=== PATIENT | female | born 1980 | race Hispanic/Latino ===

== ENCOUNTER 2020-07-17 01:11 | Emergency (ER) | payer OTHER ==
[2020-07-17 02:00] LABS: BASOPHILS % (AUTO) 0.8 % (0.0-5.0); EOSINOPHILS % (AUTO) 0.8 % (0.0-8.0); HEMATOCRIT 35.6 % (36-48); LYMPHOCYTES % (AUTO) 32.6 % (21.0-51.0); MEAN CORPUSCULAR HGB CONC 33.7 g/dL (32.0-36.0); MEAN CORPUSCULAR VOLUME 103.8 fL (79-99); MONOCYTES % (AUTO) 13.9 % (3.0-13.0); NEUTROPHILS % (AUTO) 51.4 % (40.0-77.0); PLATELET COUNT (AUTO) 265 K/uL (130-400); RED BLOOD CELL COUNT(AUTO) 3.43 MIL/uL (4.00-5.50); RED CELL DISTRIBUTION WIDTH 14.1 % (11.0-15.5); WHITE BLOOD COUNT (AUTO) 3.9 K/uL (4.8-10.8)
[2020-07-17 02:07] LABS: CARBON DIOXIDE 27 mmol/L (21-32); CHLORIDE 104 mmol/L (101-111); CREATININE 0.6 mg/dL (0.5-1.5); GLOMERULAR FILTR. RATE CALC 118 mL/min (>60); GLUCOSE,RANDOM 98 mg/dL (70-105); POTASSIUM 3.2 mmol/L (3.5-5.1); SODIUM SERUM 143 mmol/L (136-145); UREA NITROGEN, BLOOD 7 mg/dL (7-18)
[2020-07-17 02:12] LABS: ALANINE AMINOTRANSFERASE 59 U/L (12-78); ALBUMIN 3.4 g/dL (3.5-5.0); ASPARTATE AMINOTRANSFERASE 51 U/L (10-37); BILIRUBIN,TOTAL 0.1 mg/dL (0.2-1.0); CREATINE KINASE, TOTAL 116 U/L (21-232); TOTAL PROTEIN, SERUM 7.6 g/dL (6.0-8.3)
[2020-07-17 02:14] LABS: ALCOHOL, BLOOD 311 mg/dL (0-10)
[2020-07-17 02:15] LABS: BILIRUBIN,DIRECT < 0.1 mg/dL (0.0-0.3)
[2020-07-17 02:26] LABS: AMPHET/METH SCREEN,URINE NEGATIVE (NEGATIVE); BARBITURATE SCREEN, URINE NEGATIVE (NEGATIVE); BENZODIAZEPINES SCREEN,URINE POSITIVE (NEGATIVE); CANNABINOID SCREEN,URINE NEGATIVE (NEGATIVE); COCAINE SCREEN,URINE NEGATIVE (NEGATIVE); OPIATE SCREEN,URINE NEGATIVE (NEGATIVE); PHENCYCLIDINE SCREEN,URINE NEGATIVE (NEGATIVE)
== END 2020-07-17 04:12 | disposition home or self-care (01) ==
LOC: EDH 01:11
DX: R20.2 Paresthesia of skin (principal); F10.10 Alcohol abuse, uncomplicated; F41.9 Anxiety disorder, unspecified; Z90.49 Acquired absence of other specified parts of digestive tract; Z98.890 Other specified postprocedural states
CPT/HCPCS: 36415; 70450; 80048; 80076; 80305; 82550; 84484; 85025; 93005

== ENCOUNTER 2024-10-03 05:56 | Emergency (ER) | payer OTHER ==
[~2024-10-03] VITALS: Ht 165.1 cm; Wt 64.0 kg
[~2024-10-03 05:56] MED LIST changes: -ACET-2079 PO; -GABA-529 PO
--- NOTE | 2024-10-03 06:27 | NUR ---
PATIENT STATES ONLY TAKES VITAMINS DAILY.
--- NOTE | 2024-10-03 06:28 | NUR ---
STATES HERE FOR CHRONIC BILATERAL LOWER BACK PAIN DOWN TO LOWER LEGS, PAIN INCLUDES BUTTOCKS, AND HIPS. STATES SEEEING DR PRINGLE FOR THESE PAINS, PAIN DISRUPTS SLEEP.
[2024-10-03] MEDS ORDERED: ACET-2079 PO (07:16)
[2024-10-03] MEDS ORDERED: GABA-529 PO (07:17)
--- NOTE | 2024-10-03 07:17 | ERN ---
General Chief Complaint: Hip Pain/Injury Stated Complaint: C/O PAIN TO BODY AND HIPS, LEFT KNEE, BACK Time Seen by MD: 06:50 History of Present Illness Initial Comments 44-year-old female who presents for chronic hip, coccyx, and lower pain. Patient reports that she had an injury a few years ago. She reports that she has been extensively worked up. She reports that lately the pain has been getting worse in her bilateral hips and lower back. She has no neurovascular deficits. She is ambulatory. No paresthesias. She uses Tylenol at home which she reports is not working anymore. Any systemic signs or symptoms. She has a history of high cholesterol. Allergies: Uncoded Allergies: NKDA (Adverse Reaction, Unknown, 04/07/24) Home Meds Active Scripts Gabapentin (Gabapentin) 100 Mg Capsule, 1 CAP PO TID for pain for 10 Days, #30 CAP 0 Refills Prov:ARIELLA ADAIR DO 10/03/24 Acetaminophen with Codeine (Acetaminophen-Cod #3 Tablet) 300 Mg-30 Mg Tablet, 1 TAB PO Q6HPRN PRN for pain for 7 Days, #20 TAB 0 Refills Prov:ARIELLA ADAIR DO 10/03/24 Pantoprazole Sodium (Protonix) 40 Mg Ectab, 40 MG PO DAILY for 30 Days, #30 TAB.EC Prov:WILIAM CHOUDHURY NP 04/09/24 Reported Medications Atorvastatin Calcium (Atorvastatin Calcium) 20 Mg Tablet, 20 MG PO DAILY, TAB 04/08/24 Alprazolam (Alprazolam) 0.5 Mg Tablet, 0.5 MG PO BID PRN for ANXIETY/AGITATION, TAB 04/08/24 Past Medical History Past Medical History: Anxiety, Other Medical History Other: HX OF GASTRITIS, OSTEO-ARTHRITIS Past Surgical History: Cholecystectomy, Female( History) History: Not Applicable ROS Dictation CONSTITUTIONAL: No chills, no fever, no weakness, no diaphoresis, no malaise. HEAD/FACE: No signs of trauma. EENT: No eye pain, no blurred vision, no tearing, no double vision, no ear pain, no ear discharge, no nose pain, no nasal congestion, no throat pain, no throat swelling, no mouth pain. RESPIRATORY: No cough, no orthopnea, no SOB, no stridor, no wheezing. CARDIOVASCULAR: No chest pain, no edema, no palpitations, no syncope. GASTROINTESTINAL/ABDOMINAL: No abdominal pain, no constipation, no diarrhea, no nausea, no vomiting. GENITOURINARY: No abnormal discharge, no dysuria, no frequent urination, no hematuria. No complaints of pain in the genitals. MUSCULOSKELETAL: Bilateral hip pain, lower back pain INTEGUMENTARY: No change in color, no change in hair/nails, no dryness, no lesion, no lumps, no rash. NEUROLOGICAL/PSYCH: No anxiety, not depressed, no emotional problem, no headache, no numbness, no pre-existing deficit, no history of seizures, no tremors, no weakness. HEMATOLOGIC/LYMPHATIC: Not anemic, no history of blood clots, no apparent bleeding, no bruising, glands not swollen. All Systems Negative, Except as Noted. Physical Exam Physical Exam Dictation VITAL SIGNS: Reviewed. GENERAL APPEARANCE: Alert, oriented x3, no acute distress HEAD AND FACE: Non-traumatic. EYES: PERRL, pink conjunctivas, eyelid no trauma, anterior chamber clear. EARS: Pinnas intact and no signs of trauma or erythema. Ear canals clear and no discharge. TMs no erythema. NOSE: No discharge, no bleeding. OROPHARYNX: Mouth normal, teeth no caries, tongue pink. Pharynx clear, no erythema. Tonsils no exudates, no abscesses noted. Mucous membrane moist. NECK: Supple, non-tender, no thyromegaly, no masses, no JVD, no bruits. BREAST: Deferred. CHEST: No tenderness, no crepitus, no paradoxical movement, no retractions. LUNGS: Clear, well-ventilated, symmetric, no rales, no wheezing, no rhonchi, no stridor, good breath sounds bilaterally. HEART: Regular rate, regular rhythm, no murmur, no gallops. VASCULAR: No peripheral edema. ABDOMEN: Soft, positive bowel sounds, nondistended, no guarding, nontender, no rebound, no masses no hepatomegaly, no splenomegaly, no Grace's sign, no hernias. RECTAL: Deferred. GENITAL: Deferred. NEUROLOGICAL: Normal speech, gross motor function intact, gross sensory function intact. MUSCULOSKELETAL: Neck nontender, full range of motion, back nontender, full range of motion. EXTREMITIES: Nontender, full range of motion. SKIN: Color pink, dry, no turgor, no rash, no lacerations, no abrasions, no contusions. LYMPHATICS: Deferred. MDM CC: Bilateral hip pain, chronic, lower back pain Historian: Patient Comorbidities: Injury a few years ago, hypertension Vital signs are stable Differential diagnosis: MSK pain. I did consider alternative disorders such as rheumatoid arthritis. There is no signs of skeletal injury or disease. He is ambulatory. No signs of cauda equina syndrome or compression syndromes. Ordered a bilateral pelvic x-ray. No acute abnormalities independently interpreted by me. Patient given a p.o. [place]. We will DC with pain control, she was a history of gastritis we will avoid NSAIDs. We will give a short course of Tylenol with codeine and recommend PCP follow up. ED Course Orders Procedure Category Date Status Time Hip Bilat 2vw RAD 10/03/24 Taken 07:11 Hydrocodone/Apap PHA 10/03/24 Complete 5/325 ([place] 5/325mg) 07:30 Current Medications Medications (Trade) Dose Ordered Sig/Sravani Route PRN Reason Start Time Stop Time Status Last Admin Dose Admin Acetaminophen/ Hydrocodone Bitart (NORco 5/325MG) 1 tab ONCE ONCE PO 10/03/24 07:30 10/03/24 07:31 DC 10/03/24 07:25 Vital Signs Date Time Temp Pulse Resp B/P (MAP) Pulse Ox O2 Delivery O2 Flow Rate FiO2 10/03/24 05:58 97.0 103 18 122/82 98 Room Air DX & DISP Disposition: Discharge Departure Impression: Primary Impression: Chronic hip pain Condition: Stable Scripts Gabapentin (Gabapentin) 100 Mg Capsule 1 CAP PO TID for pain for 10 Days, #30 CAP 0 Refills Prov: ARIELLA ADAIR DO 10/03/24 Acetaminophen with Codeine (Acetaminophen-Cod #3 Tablet) 300 Mg-30 Mg Tablet 1 TAB PO Q6HPRN PRN for pain for 7 Days, #20 TAB 0 Refills Prov: ARIELLA ADAIR DO 10/03/24 Additional Instructions: Your symptoms are consistent with chronic pain. The x-ray of your hips does not show any bony abnormalities. I have prescribed Tylenol with codeine and gabapentin to use as needed for pain. I recommend that you follow up with the primary physician. You may need further treatment such as physical therapy. Please return to the emergency department as needed. Referrals: NIKI BEAL MD (PCP) ARIELLA ADAIR DO Oct 03, 2024 07:17
[2024-10-03 07:25] VITALS: BP 120/80; PULSE 95; RESP 18; TEMP 98; O2SAT 98
[2024-10-03] MEDS: HYDROcodone/APAP 5/325 1 TAB TABLET PO ONE (07:25)
--- NOTE | 2024-10-03 08:50 | HMCIMG ---
HIP BILAT 2VW REASON: pain COMPARISON: None TECHNIQUE: 2 views were obtained of the pelvis and both hips. FINDINGS: Bones of the pelvis appear intact. There are no fractures. There are no focal osseous lesions. Proximal femurs appear normal including both femoral heads. Hip joint spaces are preserved. Soft tissues appear unremarkable. IMPRESSION: 1. Normal views of the pelvis and both hips.
== END 2024-10-03 08:08 | disposition home or self-care (01) ==
LOC: EDH 05:56
DX: G89.29 Other chronic pain (principal); M25.551 Pain in right hip; M25.552 Pain in left hip; E78.00 Pure hypercholesterolemia, unspecified; F41.9 Anxiety disorder, unspecified; I10 Essential (primary) hypertension; M19.90 Unspecified osteoarthritis, unspecified site; Z79.899 Other long term (current) drug therapy; Z90.49 Acquired absence of other specified parts of digestive tract
CPT/HCPCS: 73521; 99283

== ENCOUNTER → 2024-10-03 | Emergency (ER) | payer BC, OTHER ==
[~2024-10-03] VITALS: Ht 165.1 cm; Wt 64.0 kg
[~2024-10-03] MED LIST: ACET-2079 PO; ALPR0.5T8 PO; ATOR20TA65 PO; GABA-529 PO; PANT40TA55 PO
[2024-10-03 02:12] VITALS: BP 119/93; PULSE 111; RESP 20; TEMP 96.6
--- NOTE | 2024-10-03 02:45 | ERN ---
ED Note History of Present Illness Stated Complaint: C/O PAIN TO BODY X 1 YR Chief Complaint: Hip Pain/Injury Time Seen by MD: 02:19 Dictation: Patient left without being seen went to [facility] and returned after 2 hours and refused to sign in Allergies: Uncoded Allergies: NKDA (Adverse Reaction, Unknown, 04/07/24) Home Meds Active Scripts Pantoprazole Sodium (Protonix) 40 Mg Ectab, 40 MG PO DAILY for 30 Days, #30 TAB.EC Prov:WILIAM CHOUDHURY SURVEILLANCE [employer] TECHNICIAN 04/09/24 Reported Medications Atorvastatin Calcium (Atorvastatin Calcium) 20 Mg Tablet, 20 MG PO DAILY, TAB 04/08/24 Alprazolam (Alprazolam) 0.5 Mg Tablet, 0.5 MG PO BID PRN for ANXIETY/AGITATION, TAB 04/08/24 Past Medical History Past Medical History: Anxiety, Other Additional Past Medical Hx: HX OF GASTRITIS, OSTEO-ARTHRITIS Surgical History: Cholecystectomy, History: Not Applicable RN Note Reviewed/Agreed w/PFSH: Yes Review of System Dictation Left without being seen Initial Vital Sign VS Vital Signs Date Time Temp Pulse Resp B/P (MAP) Pulse Ox O2 Delivery O2 Flow Rate FiO2 10/03/24 02:12 96.6 111 20 119/93 98 Room Air Physical Exam Dictation Left without being seen Results (Laboratory/Radiology) Labs Reviewed?: Yes ED Course ED Course Vital Signs Date Time Temp Pulse Resp B/P (MAP) Pulse Ox O2 Delivery O2 Flow Rate FiO2 10/03/24 02:12 96.6 111 20 119/93 98 Room Air We will perform diagnostic labs, advanced imaging and administer medications according to the patient's complaint. Once the results are available, will review and personally interpreted the labs to rule out any acute life- threatening emergency the trach require immediate intervention and treatment. I will then re-evaluate the patient after treatment and diagnostic exams have return to determine whether the patient requires any further testing, can safely be discharged home or need further admission to hospital for additional treatment and evaluation. I requested pelvic x-rays but patient refused and left without being seen Medical Decision Making MDM Left without being seen Problem List Problem List: (1) Chronic hip pain DX & DISP Disposition: Other(Comment) (Patient left without being seen) Departure Impression: Primary Impression: Chronic hip pain Condition: Stable Additional Instructions: Patient left without being seen Referrals: NIKI BEAL MD (PCP) BOZENA GARCIA MD Oct 03, 2024 02:45
--- NOTE | 2024-10-03 03:37 | NUR ---
CALLED FOR PT IN LOBBY; NO RESPONSE; PT NOT FOUND IN LOBBY
== END | disposition left against medical advice (07) ==
LOC: EDH 02:09
DX: G89.29 Other chronic pain (principal); M25.559 Pain in unspecified hip; F41.9 Anxiety disorder, unspecified; M19.90 Unspecified osteoarthritis, unspecified site; Z79.899 Other long term (current) drug therapy; Z90.49 Acquired absence of other specified parts of digestive tract; Z53.21 Procedure and treatment not carried out due to patient leaving prior to being seen by health care provider

== ENCOUNTER 2024-12-23 03:55 | Emergency (ER) | payer BC, OTHER ==
[~2024-12-23] VITALS: Ht 167.6 cm; Wt 59.0 kg
[~2024-12-23 03:55] MED LIST changes: +ACET-2079 PO; +GABA-529 PO
--- NOTE | 2024-12-23 04:18 | NUR ---
REPORT TO RENATA CHARLES
--- NOTE | 2024-12-23 04:27 | ERN ---
General Chief Complaint: Multiple Complaints Stated Complaint: EPIGASTRIC PAIN Time Seen by MD: 04:17 History of Present Illness Initial Comments Patient is a 44-year-old female with complaints of epigastric pain but also nausea and vomiting and a sore throat. Her major complaint seems to be chest "bubbly feeling" starting in her right upper chest and migrating around to her right side. She states that she has GERD and h her breathing is laborious. Timing/Duration: 24 hours Allergies: Uncoded Allergies: NKDA (Adverse Reaction, Unknown, 04/07/24) Home Meds Active Scripts Pantoprazole Sodium (Protonix) 20 Mg Tablet.dr, 1 TAB PO DAILY for 30 Days, #30 TAB 0 Refills Prov:LUPE ALVARADO MD 12/23/24 Cyclobenzaprine HCl (Flexeril) 10 Mg Tab, 10 MG PO TID for muscle sstiffness, #14 TAB 0 Refills Prov:LUPE ALVARADO MD 12/23/24 Gabapentin (Gabapentin) 100 Mg Capsule, 1 CAP PO TID for pain for 10 Days, #30 CAP 0 Refills Prov:ARIELLA ADAIR DO 10/03/24 Acetaminophen with Codeine (Acetaminophen-Cod #3 Tablet) 300 Mg-30 Mg Tablet, 1 TAB PO Q6HPRN PRN for pain for 7 Days, #20 TAB 0 Refills Prov:ARIELLA ADAIR DO 10/03/24 Pantoprazole Sodium (Protonix) 40 Mg Ectab, 40 MG PO DAILY for 30 Days, #30 TAB.EC Prov:WILIAM CHOUDHURY NP 04/09/24 Reported Medications Atorvastatin Calcium (Atorvastatin Calcium) 20 Mg Tablet, 20 MG PO DAILY, TAB 04/08/24 Alprazolam (Alprazolam) 0.5 Mg Tablet, 0.5 MG PO BID PRN for ANXIETY/AGITATION, TAB 04/08/24 Past Medical History Past Medical History: Anxiety, Depression, Other Medical History Other: HX OF GASTRITIS, OSTEO-ARTHRITIS Past Surgical History: Cholecystectomy, Female( History) History: Not Applicable ROS Dictation Review of systems is otherwise negative no fevers or chills no change in mental status no visual changes no sore throat no abdominal pain can move all of her extremities. Physical Exam General Appearance: (+) mild distress Orientation: (+) alert Head/Face Trauma: No Eye: bilateral eye normal inspection, bilateral eye PERRL, bilateral eye EOMI Ear, Nose, Throat: (+) hearing grossly normal, (+) normal ENT inspection Neck: (+) normal inspection, (+) supple, (+) full range of motion Respiratory: (+) lungs clear, (+) well ventilated Respiratory Comment She has surprising chest wall tenderness on the right upper chest. There are no lumps under the skin that I can palpate there are no areas of redness but there definitely has point tenderness. Heart: (+) regular, (+) no gallop Vascular: (+) no edema, (+) normal peripheral pulse Gastrointestinal: (+) soft, (+) non-tender, (+) no organomegaly, (+) bowel sound present Results Laboratory and Microbiology Lab and Micro Result Laboratory Tests Test 12/23/24 04:50 12/23/24 05:00 Urine Color YELLOW (YELLOW) Urine Appearance CLOUDY (CLEAR) H Urine pH 7.5 (5.0-8.0) Urine Specific [place] 1.024 (1.001-1.031) Urine Protein 30 mg/dL (NEGATIVE) H Urine Glucose (UA) NEGATIVE mg/dL (NEGATIVE) Urine Ketones NEGATIVE mg/dL (NEGATIVE) Urine Occult Blood NEGATIVE (NEGATIVE) Urine Nitrate NEGATIVE (NEGATIVE) Urine Bilirubin NEGATIVE mg/dL (NEGATIVE) Urine Urobilinogen 4.0 mg/dL (0.2-1.0) H Urine Leukocyte Esterase NEGATIVE Lino/uL Urine RBC 2-5 /HPF (0-1) H Urine WBC 2-5 /HPF (0-1) H Urine Squamous Epithelial Cells FEW /HPF (0-2) Urine Other Crystals (Auto) 3 /HPF (None Seen) Urine Bacteria RARE /HPF (None Seen) Urine HCG, Qualitative NEGATIVE (NEGATIVE) White Blood Count 4.0 K/uL (4.8-10.8) L Red Blood Count 3.72 MIL/uL (4.00-5.50) L Hemoglobin 13.8 g/dL (12.0-16.0) Hematocrit 40.2 % (36-48) Mean Corpuscular Volume 108.1 fL (79-99) H Mean Corpuscular Hemoglobin 37.1 pg (27.0-33.0) H Mean Corpuscular Hemoglobin Concent 34.3 g/dL (32.0-36.0) Red Cell Distribution Width 13.5 % (11.0-15.5) Platelet Count 175 K/uL (130-400) Mean Platelet Volume 10.9 fL (7.5-10.5) H Immature Granulocyte % (Auto) 0.8 % (0-1) Neutrophils (%) (Auto) 56.0 % (40.0-77.0) Lymphocytes (%) (Auto) 28.1 % (21.0-51.0) Monocytes (%) (Auto) 13.8 % (3.0-13.0) H Eosinophils (%) (Auto) 0.5 % (0.0-8.0) Basophils (%) (Auto) 0.8 % (0.0-5.0) Neutrophils # (Auto) 2.2 K/uL (1.8-7.7) Lymphocytes # (Auto) 1.1 K/uL (1.0-4.8) Monocytes # (Auto) 0.6 K/uL (0.1-1.0) Eosinophils # (Auto) 0.02 K/uL (0.00-0.70) Basophils # (Auto) 0.03 K/uL (0.00-0.20) Absolute Immature Granulocyte (auto 0.03 K/uL (0-1) Nucleated Red Blood Cells 0.0 % (0.0-0.19) Red Blood Cell Morphology See comments Sodium Level 144 mmol/L (136-145) Potassium Level 3.0 mmol/L (3.5-5.1) *L Chloride Level 103 mmol/L (101-111) Carbon Dioxide Level 31 mmol/L (21-32) Blood Urea Nitrogen 4 mg/dL (7-18) L Creatinine 0.4 mg/dL (0.5-1.0) L Glomerular Filtration Rate Calc 125 mL/min (>90) Random Glucose 90 mg/dL (70-105) Total Calcium 8.9 mg/dL (8.5-10.1) Troponin I High Sensitivity < 4 ng/L (4-50) L B-Type Natriuretic Peptide < 5 pg/mL (0-100) Labs Reviewed?: Yes MDM I am sort of at a loss for a simple explanation for this constellation of symptoms that the patient has. I will start my workup for the usual upper respiratory tract infection or gastroenteritis. Labs for cardiac workup have already been ordered. I added a GI cocktail. In addition I will include a chest x-ray. Incidentally she pointed out some swelling to her left elbow from a mosquito bite I will give her some Benadryl. Chemistry panel comes back with a potassium of 3.0. We are correcting it. UA was negative negative WBCs 4.0, hematocrit normal. Patient's chest x-ray is negative talking to the patient and her creative writer he mentioned yesterday he heard her fall hard and found her on the tile floor face down. I believe this explains the majority of the patient's acute symptoms. When I palpate her right upper chest wall even a little bit she reacts with pain. And just moving her shoulder elicits pain in her right upper chest. I think she severely injured her chest wall. I will get a CT scan of her chest just to rule out occult rib fractures that are not seen on the chest x-ray possibly also we will see some muscular swelling. In the meantime I will treat her pain with Tylenol and muscle relaxant. Interestingly when I talked to the patient about her potassium level she said that it is always low she does not know why. Her magnesium tends to run low as well. She knows to replenish them when she gets muscle cramps in her bilateral lower extremities. Patient handed off at shift change pending results on imaging, CT scan of the chest negative for any fractures and dislocations. Re-evaluated patient she reports she feels better and wants to go home repeat exam is stable no acute distress neuro exam normal vital signs stable prescriptions given. MDM: Differential diagnosis: Chest wall contusion, electrolyte imbalance Risk of complication and/or morbidity or mortality of patient management: None Medications-Per medication reconciliation Need for hospitalization: Patient does not meet criteria for hospitalization. Need for emergency major/minor surgery: No There are no social concerns with this patient. Prescription drug management Prescriptions will include symptomatic care I independently interpreted the test that were performed, results were reviewed by me and considered findings on radiology if ordered. ED Course Orders Procedure Category Date Status Time Vital Signs Per CPOE 12/23/24 Transmitted Routine 04:00 B-Type Natriuretic LAB 12/23/24 Complete Peptide 04:00 12 Lead Ekg Tracing- EKG 12/23/24 Logged Technical 04:00 Oxygen By Nc/Pulse Ox CPOE 12/23/24 Transmitted 04:00 Maintain Iv CPOE 12/23/24 Transmitted 04:00 Iv Insertion CPOE 12/23/24 Transmitted 04:00 Cardiac Monitoring CPOE 12/23/24 Transmitted 04:00 Pulse Oximetry With CPOE 12/23/24 Transmitted Vs And Prn 04:00 Cbc With Differential LAB 12/23/24 Complete 04:00 Activity: Br W/Brp CPOE 12/23/24 Transmitted With Assist 04:00 Troponin I High LAB 12/23/24 Complete Sensitivity 04:00 Urinalysis Profile LAB 12/23/24 Complete 04:00 Basic Metabolic Panel LAB 12/23/24 Complete 04:00 ,Urine Test LAB 12/23/24 Complete 04:52 Chest 1vw RAD 12/23/24 Resulted 05:03 Lidocaine Hcl 2% PHA 12/23/24 Complete Viscous (Lidocaine Hcl 05:30 Mag/Alum/Simeth 30ml PHA 12/23/24 Complete (Maalox Plus 30ml) 05:30 Dicyclomine Hcl PHA 12/23/24 Complete (Bentyl 10mg/5ml 05:30 Potassium Bicarb/Cit PHA 12/23/24 Complete Ac 25meq (K-Lyte Ta 06:00 Cyclobenzaprine Hcl PHA 12/23/24 Complete (Cyclobenzaprine Hcl 07:00 Acetaminophen 650mg PHA 12/23/24 Complete Elixir (Tylenol 650m 07:00 Ct Chest W/O Contrast CT 12/23/24 Resulted 06:56 Current Medications Medications (Trade) Dose Ordered Sig/Sravani Route PRN Reason Start Time Stop Time Status Last Admin Dose Admin Acetaminophen (TYLenol 650MG ELIXIR) 650 mg ONCE ONCE PEG 12/23/24 07:00 12/23/24 07:01 DC 12/23/24 06:52 Al Hydroxide/Mg Hydroxide (MAALox PLUS 30ML) 30 ml ONCE ONCE PO 12/23/24 05:30 12/23/24 05:31 DC 12/23/24 05:31 Cyclobenzaprine HCl (Cyclobenzaprine HCl) 10 mg ONCE ONCE PO 12/23/24 07:00 12/23/24 07:01 DC 12/23/24 06:52 Dicyclomine HCl (Bentyl 10mg/5ml Syrup) 10 mg ONCE ONCE PO 12/23/24 05:30 12/23/24 05:31 DC 12/23/24 05:31 Lidocaine HCl (Lidocaine HCl 2% Viscous) 10 ml ONCE ONCE PO 12/23/24 05:30 12/23/24 05:31 DC 12/23/24 05:31 Potassium Bicarbonate (K-Lyte Tablet Eff 25 Meq Tablet.eff) 50 meq ONCE ONCE PO 12/23/24 06:00 12/23/24 06:01 DC 12/23/24 05:42 Vital Signs Date Time Temp Pulse Resp B/P (MAP) Pulse Ox O2 Delivery O2 Flow Rate FiO2 12/23/24 07:55 98.1 87 16 98/73 97 Room Air* 0 21 12/23/24 05:06 98.1 87 16 112/68 98 Room Air* 0 21 12/23/24 03:56 97.9 95 20 108/79 97 Room Air DX & DISP Disposition: Discharge Departure Impression: Primary Impression: Chest wall contusion Additional Impression: Hypokalemia Condition: Stable Scripts Pantoprazole Sodium (Protonix) 20 Mg Tablet.dr 1 TAB PO DAILY for 30 Days, #30 TAB 0 Refills Prov: LUPE ALVARADO MD 12/23/24 Cyclobenzaprine HCl (Flexeril) 10 Mg Tab 10 MG PO TID for muscle sstiffness, #14 TAB 0 Refills Prov: LUPE ALVARADO MD 12/23/24 Referrals: NIKI BEAL MD (PCP) LYNETTE BROWNLEE MD Dec 23, 2024 04:27 LUPE ALVARADO MD Dec 23, 2024 08:37
[2024-12-23 05:09] LABS: BASOPHILS # (AUTO) 0.03 K/uL (0.00-0.20); BASOPHILS % (AUTO) 0.8 % (0.0-5.0); EOSINOPHILS # (AUTO) 0.02 K/uL (0.00-0.70); EOSINOPHILS % (AUTO) 0.5 % (0.0-8.0); HEMATOCRIT 40.2 % (36-48); IMMATURE GRANULOCYTE ABSOLUTE 0.03 K/uL (0-1); LYMPHOCYTES # (AUTO) 1.1 K/uL (1.0-4.8); LYMPHOCYTES % (AUTO) 28.1 % (21.0-51.0); MEAN CORPUSCULAR HEMOGLOBIN 37.1 pg (27.0-33.0); MEAN CORPUSCULAR HGB CONC 34.3 g/dL (32.0-36.0); MEAN CORPUSCULAR VOLUME 108.1 fL (79-99); MONOCYTES # (AUTO) 0.6 K/uL (0.1-1.0); MONOCYTES % (AUTO) 13.8 % (3.0-13.0); NEUTROPHILS # (AUTO) 2.2 K/uL (1.8-7.7); PLATELET COUNT (AUTO) 175 K/uL (130-400); RED BLOOD CELL COUNT(AUTO) 3.72 MIL/uL (4.00-5.50); RED CELL DISTRIBUTION WIDTH 13.5 % (11.0-15.5)
[2024-12-23 05:19] LABS: CREATININE 0.4 mg/dL (0.5-1.0)
[2024-12-23 05:21] LABS: APPEARANCE,URINE CLOUDY (CLEAR); BILIRUBIN,URINE NEGATIVE (NEGATIVE); COLOR,URINE YELLOW (YELLOW); GLUCOSE, URINE (UA) NEGATIVE (NEGATIVE); KETONES,URINE NEGATIVE (NEGATIVE); LEUKOCYTE ESTERASE ,URINE NEGATIVE Leu/uL (NEGATIVE); NITRATE,URINE NEGATIVE (NEGATIVE); OCCULT BLOOD,URINE NEGATIVE (NEGATIVE); PH,URINE 7.5 (5.0-8.0); PROTEIN,URINE 30 mg/dL (NEGATIVE)
[2024-12-23 05:29] LABS: ADD UA MICROSCOPIC YES
[2024-12-23 05:31] LABS: BACTERIA,URINE RARE /HPF (None Seen); MUCUS,URINE MANY LPF (None Seen); SQUAMOUS EPITHELIAL CELL,UR FEW /HPF (0-2); UNCLASSIFIED CRYSTAL 3 /HPF (None Seen)
[2024-12-23] MEDS: LIDOCAINE HCL 2% VISCOUS 15 ML UDCUP PO ONE (05:31)
[2024-12-23] MEDS: MAG/ALUM/SIMETH 30 ML UDCUP PO ONE (05:31)
[2024-12-23] MEDS: DICYCLOMINE HCL 10 MG/5 ML ML PO ONE (05:31)
[2024-12-23] MEDS: PoTASSium BIcarbonate/CIT AC 25 MEQ TABLET.EFF PO ONE (05:42)
[2024-12-23 05:52] LABS: B-TYPE NATRIURETIC PEPTIDE < 5 pg/mL (0-100)
[2024-12-23] MEDS: acetaMINOPHEN 650 MG/20.3 ML UDCUP PEG ONE (06:52)
[2024-12-23] MEDS: CYCLOBENZAPRINE HCL 10 MG TABLET PO ONE (06:52)
[2024-12-23 07:55] VITALS: BP 98/73; PULSE 87; RESP 16; TEMP 98.1; O2SAT 97
--- NOTE | 2024-12-23 08:11 | HMCIMG ---
CT NONCONTRAST CHEST Comparison Study: none History: chest wall pain Technique: Helical CT of the chest without IV contrast at 5 mm collimation. Coronal and sagittal reformations also done. CT Dose Index (CTDI): 2.38 mGy Dose Length Product (DLP): 94.8 total mGy-cm Findings: The airway is intact. The trachea and major bronchi are unremarkable. The chest exam shows no pulmonary nodules or masses. No significant pulmonary parenchymal abnormalities are noted. No pulmonary infiltrates or mass lesions are seen. No pleural effusions are identified. There is no pneumothorax. There is no evidence of pneumomediastinum. The nonenhanced exam of the ugo and mediastinum is unremarkable. No evidence of hilar enlargement is seen. The aorta shows no aneurysmal dilatation or significant atheromatous calcification. No significant brachiocephalic vascular abnormalities are seen. The heart is unremarkable. It is not enlarged. No significant coronary arterial calcifications are seen. There is no pericardial effusion. Deformity of the right second and fourth ribs which may represent old healed fractures. The soft tissues of the chest wall are unremarkable. The dorsal spine shows no significant abnormalities. IMPRESSION: No acute pathology. This study was performed using dose reduction techniques to include automated exposure control and/or adjustment of the mA and/or kV according to patient size.
--- NOTE | 2024-12-23 08:16 | HMCIMG ---
Exam Type: CHEST 1VW Clinical Information: sob chest wall pain Comparison: None Findings: The lungs are clear of infiltrates. The heart is normal in size. The bony and soft tissue structures of the chest are unremarkable. Impression: Clear lungs.
[2024-12-23] MEDS ORDERED: PANT20TA PO (08:36)
[2024-12-23] MEDS ORDERED: CYCL10TA16 PO (08:36)
--- NOTE | 2024-12-23 16:01 | EKG ---
[facility] Test Date: 2024-12-23 Test Time: 03:46:52 Pat Name: TOMAS ELAM Department: [facility] Room: Gender: F Administrative Assistant Front Desk: [id number] : 1980 Requested By: LYNETTE BROWNLEE Order Number: [id number] Reading MD: Joan Monahan Measurements Intervals [place] Rate: 88 P: 35 OK: 160 QRS: -14 QRSD: 58 T: 4 QT: 383 QTc: 464 Interpretive Statements Sinus rhythm Borderline ST elevation, lateral leads Compared to ECG 07/17/2020 01:32:25 ST (T wave) deviation now present Sinus tachycardia no longer present Electronically Signed On 12-24-2024 12:37:21 CDT by Joan Monahan Please click the below link to view image of tracing.
== END 2024-12-23 08:47 | disposition home or self-care (01) ==
LOC: EDH 03:55
DX: S20.219A Contusion of unspecified front wall of thorax, initial encounter (principal); E87.6 Hypokalemia; F32.A Depression, unspecified; F41.9 Anxiety disorder, unspecified; K21.9 Gastro-esophageal reflux disease without esophagitis; M19.90 Unspecified osteoarthritis, unspecified site; Z79.899 Other long term (current) drug therapy; Z90.49 Acquired absence of other specified parts of digestive tract; X58.XXXA Exposure to other specified factors, initial encounter; Y93.89 Activity, other specified; Y92.89 Other specified places as the place of occurrence of the external cause; Y99.8 Other external cause status
CPT/HCPCS: 36415; 71045; 71250; 80048; 81001; 81025; 83880; 84484; 85025; 93005; 99284

== ENCOUNTER 2025-08-14 18:12 | Emergency (ER) | payer BC ==
[~2025-08-14] VITALS: Ht 165.1 cm; Wt 59.1 kg
[~2025-08-14 18:12] MED LIST changes: +ALBU18HF7 IH; +ALBUTEROL; +CYCL-309 PO; +CYCL10TA16 PO; +ERGO500093 PO; +ESCI20TA38 PO; +FAMO40TA7 PO; +LIDO700A30 TP; +PANT20TA PO; +PANT20TA18 PO
--- NOTE | 2025-08-14 18:28 | ERN ---
ED Note History of Present Illness Stated Complaint: OTHER Chief Complaint: Other Problems Time Seen by MD: 18:16 Dictation: PATIENT IS A 45-YEAR-OLD FEMALE COMING IN TODAY WITH COMPLAINTS OF HAVING BEEN DRINKING FOR THE LAST THREE YEAR SEVERAL DRINKS A DAY. SHE STATES SHE HAS ALSO BEEN BINGEING ON SCOTCH OVER THE LAST 2-3 DAYS, TODAY STATES SHE DRANK 1.75 L. STATES SHE HAS HAD SEVERAL RECENT FALL SECONDARY TO THIS. SHE HAS A CONTUSION TO HER NOSE AND TO HER ABRASION TO HER LEFT KNEE. SHE STATES SHE HAS ALREADY BEEN SEEN FOR THESE INJURIES AT [facility]. SHE SAID THAT THEY HAD DISCHARGED HER HOME WITH A ENROLLMENT CLERK HOWEVER SHE HAS NOT FOLLOWED UP WITH THE YOUR PRIMARY CARE DOCTOR, DR. LOCKETT. HE DENIES SUICIDAL OR HOMICIDAL IDEATION. Allergies: Coded Allergies: Iodinated Contrast Media (Verified Allergy, Intermediate, rash, 04/30/25) Uncoded Allergies: NKDA (Adverse Reaction, Unknown, 04/07/24) Home Meds Active Scripts Pantoprazole Sodium (Protonix) 20 Mg Tablet., 1 TAB PO DAILY for 30 Days, #30 TAB 0 Refills Prov:LUPE ALVARADO MD 12/23/24 Cyclobenzaprine HCl (Flexeril) 10 Mg Tab, 10 MG PO TID for muscle sstiffness, #14 TAB 0 Refills Prov:LUPE ALVARADO MD 12/23/24 Gabapentin (Gabapentin) 100 Mg Capsule, 1 CAP PO TID for pain for 10 Days, #30 CAP 0 Refills Prov:ARIELLA ADAIR DO 10/03/24 Acetaminophen with Codeine (Acetaminophen-Cod #3 Tablet) 300 Mg-30 Mg Tablet, 1 TAB PO Q6HPRN PRN for pain for 7 Days, #20 TAB 0 Refills Prov:ARIELLA ADAIR DO 10/03/24 Pantoprazole Sodium (Protonix) 40 Mg Ectab, 40 MG PO DAILY for 30 Days, #30 TAB.EC Prov:WILIAM CHOUDHURY 04/09/24 Reported Medications Famotidine (Famotidine) 40 Mg Tablet, 1 TAB PO DAILY 04/30/25 Escitalopram Oxalate (Escitalopram Oxalate) 20 Mg Tablet, 1 TAB PO DAILY 04/30/25 Ergocalciferol (Vitamin D2) (Vitamin D2) 1,250 Mcg (40700 Unit) Capsule, 1 CAP PO QWEEK 04/30/25 Pantoprazole Sodium (Pantoprazole Sodium) 20 Mg Tablet.dr, 1 TAB PO DAILY 04/30/25 Cyclobenzaprine HCl (Cyclobenzaprine HCl) 10 Mg Tablet, 1 TAB PO TID 04/30/25 Lidocaine (Lidocaine) 5 % Adh..patch, 1 ADH.PATCH TP [id number] PRN for PAIN LEVEL 1 TO 5 04/30/25 [Albuterol] Unknown Strength No Conflict Check 04/30/25 Albuterol Sulfate (Ventolin Hfa) 90 Mcg Hfa.aer.ad, 1 PUFF IH Q4HPRN PRN for wheezing 04/30/25 Atorvastatin Calcium (Atorvastatin Calcium) 20 Mg Tablet, 20 MG PO DAILY, TAB 04/08/24 Alprazolam (Alprazolam) 0.5 Mg Tablet, 0.5 MG PO BID PRN for ANXIETY/AGITATION, TAB 04/08/24 Past Medical History Past Medical History: Anxiety, Depression, High Cholesterol, Other Additional Past Medical Hx: HX OF GASTRITIS, OSTEO-ARTHRITIS Surgical History: Cholecystectomy, Surgical History Other: KNEE Social History: ETOH History: Not Applicable RN Note Reviewed/Agreed w/PFSH: Yes Review of System Dictation CONSTITUTIONAL: NEGATIVE EXCEPT FOR HPI HEAD/FACE: NEGATIVE EXCEPT FOR HPI EENT: NEGATIVE EXCEPT FOR HPI RESPIRATORY: NEGATIVE EXCEPT FOR HPI GASTROINTESTINAL/ABDOMINAL: NEGATIVE EXCEPT FOR HPI GENITOURINARY: NEGATIVE EXCEPT FOR HPI MUSCULOSKELETAL: NEGATIVE EXCEPT FOR HPI INTEGUMENTARY: NEGATIVE EXCEPT FOR HPI NEUROLOGICAL/PSYCH: NEGATIVE EXCEPT FOR HPI ALCOHOL ABUSE/BINGE DRINKING HEMATOLOGIC/LYMPHATIC: NEGATIVE EXCEPT FOR HPI ALL SYSTEMS NEGATIVE, EXCEPT NOTED ABOVE. 13 POINT REVIEW OF SYSTEMS ASSESSED AND ALL NEGATIVE EXCEPT FOR ABOVE. Initial Vital Sign VS Vital Signs Date Time Temp Pulse Resp B/P (MAP) Pulse Ox O2 Delivery O2 Flow Rate FiO2 08/14/25 18:14 98.1 114 18 129/87 97 Room Air 0 08/14/25 18:54 21 Physical Exam Dictation VITAL SIGNS REVIEWED GENERAL APPEARANCE: ALERT, ORIENTED X 3, NO ACUTE DISTRESS, WELL DEVELOPED, N OURISHED. HEAD AND FACE: NON-TRAUMATIC. EYES: PERRL, PINK CONJUNCTIVAS, EYELID NO TRAUMA, ANTERIOR CHAMBER WITH ARCUS SENILIS. EARS: PINNAS INTACT AND NO SIGNS OF TRAUMA OR ERYTHEMA EAR CANALS CLEAR AND NO DISCHARGE TM NO ERYTHEMA NOSE: NO DISCHARGE, NO BLEEDING. NASAL CONTUSION NOTED. OROPHARYNX: MOUTH NORMAL, TONGUE PINK, PHARYNX CLEAR,NO ERYTHEMA, TONSILS NO EXUDATES, NO ABSCESSES NOTED, MUCOUS MEMBRANE MOIST NECK: SUPPLE, NON-TENDER, NO THYROMEGALY, NO MASSES, NO JVD, NO BRUITS BREAST:DEFERRED CHEST:NO TENDERNESS, NO CREPITUS, NO PARADOXICAL MOVEMENT, NO RETRACTIONS LUNGS:CLEAR, WELL-VENTILATED, SYMMETRIC, NO RALES, NO WHEEZING, NO RHONCHI, NO STRIDOR, GOOD BREATH SOUNDS BILATERALLY HEART: REGULAR RATE, REGULAR RHYTHM, NO MURMUR, NO GALLOPS VASCULAR: NO PERIPHERAL EDEMA, ABDOMEN: SOFT, POSITIVE BOWEL SOUNDS, NONDISTENDED, NO GUARDING, NONTENDER, NO REBOUND, NO MASSES NO HEPATOMEGALY, NO SPLENOMEGALY, NO ADHIKARI'S SIGN, NO HERNIAS. RECTAL: DEFERRED GENITAL: DEFERRED NEUROLOGICAL: NORMAL SPEECH, MOTOR FUNCTION INTACT, SENSORY FUNCTION INTACT MUSCULOSKELETAL: NECK NONTENDER, FULL RANGE OF MOTION, BACK NONTENDER, FULL R ANTOINE OF MOTION, EXTREMITIES: NONTENDER, FULL RANGE OF MOTION ABRASION TO LEFT LATERAL LYMPHATIC: DEFERRED Results (Laboratory/Radiology) Laboratory/Radiology Laboratory Tests Test 08/14/25 18:40 08/14/25 18:50 White Blood Count 7.1 K/uL (4.8-10.8) Red Blood Count 4.03 MIL/uL (4.00-5.50) Hemoglobin 14.4 g/dL (12.0-16.0) Hematocrit 41.4 % (36-48) Mean Corpuscular Volume 102.7 fL (79-99) H Mean Corpuscular Hemoglobin 35.7 pg (27.0-33.0) H Mean Corpuscular Hemoglobin Concent 34.8 g/dL (32.0-36.0) Red Cell Distribution Width 15.3 % (11.0-15.5) Platelet Count 281 K/uL (130-400) Mean Platelet Volume 9.9 fL (7.5-10.5) Immature Granulocyte % (Auto) 0.4 % (0-1) Neutrophils (%) (Auto) 57.8 % (40.0-77.0) Lymphocytes (%) (Auto) 30.7 % (21.0-51.0) Monocytes (%) (Auto) 10.0 % (3.0-13.0) Eosinophils (%) (Auto) 0.3 % (0.0-8.0) Basophils (%) (Auto) 0.8 % (0.0-5.0) Neutrophils # (Auto) 4.1 K/uL (1.8-7.7) Lymphocytes # (Auto) 2.2 K/uL (1.0-4.8) Monocytes # (Auto) 0.7 K/uL (0.1-1.0) Eosinophils # (Auto) 0.02 K/uL (0.00-0.70) Basophils # (Auto) 0.06 K/uL (0.00-0.20) Absolute Immature Granulocyte (auto 0.03 K/uL (0-1) Nucleated Red Blood Cells 0.0 % (0.0-0.19) Sodium Level 138 mmol/L (136-145) Potassium Level 2.8 mmol/L (3.5-5.1) *L Chloride Level 98 mmol/L (101-111) L Carbon Dioxide Level 29 mmol/L (21-32) Blood Urea Nitrogen 4 mg/dL (7-18) L Creatinine 0.4 mg/dL (0.5-1.0) L Glomerular Filtration Rate Calc 124 mL/min (>90) Random Glucose 99 mg/dL (70-105) Total Calcium 8.8 mg/dL (8.5-10.1) Salicylates Level < 2.8 mg/dL (2.8-20.0) L Acetaminophen Level < 1 mcg/mL (10-30) L Serum Alcohol 290 mg/dL (0-10) H Urine Color YELLOW (YELLOW) Urine Appearance CLEAR (CLEAR) Urine pH 7.0 (5.0-8.0) Urine Specific [place] 1.019 (1.001-1.031) Urine Protein NEGATIVE mg/dL (NEGATIVE) Urine Glucose (UA) NEGATIVE mg/dL (NEGATIVE) Urine Ketones 40 mg/dL (NEGATIVE) H Urine Occult Blood NEGATIVE (NEGATIVE) Urine Nitrate NEGATIVE (NEGATIVE) Urine Bilirubin NEGATIVE mg/dL (NEGATIVE) Urine Urobilinogen 0.2 mg/dL (0.2-1.0) Urine Leukocyte Esterase NEGATIVE Lino/uL Urine Opiates Screen NEGATIVE (NEGATIVE) Urine Barbiturates Screen NEGATIVE (NEGATIVE) Urine Phencyclidine Screen NEGATIVE (NEGATIVE) Urine Amphetamines Screen NEGATIVE (NEGATIVE) Urine Benzodiazepines Screen NEGATIVE (NEGATIVE) Urine Cocaine Screen NEGATIVE (NEGATIVE) Urine Marijuana (THC) Screen NEGATIVE (NEGATIVE) Labs Reviewed?: Yes ED Course ED Course Orders Procedure Category Date Status Time Drug Screen Urine LAB 08/14/25 Complete 18:24 Cbc With Differential LAB 08/14/25 Complete 18:24 Alcohol, Blood LAB 08/14/25 Complete 18:24 Salicylate LAB 08/14/25 Complete 18:24 Acetaminophen LAB 08/14/25 Complete 18:24 Urinalysis Profile LAB 08/14/25 Complete 18:24 Basic Metabolic Panel LAB 08/14/25 Complete 18:24 Use The [facility]-Ar CPOE 08/14/25 Transmitted Assmt. Tool 18:24 Potassium Bicarb/Cit PHA 08/14/25 Complete Ac 25meq (K-Lyte Ta 19:30 Current Medications Medications (Trade) Dose Ordered Sig/Sravani Route PRN Reason Start Time Stop Time Status Last Admin Dose Admin Potassium Bicarbonate (K-Lyte Tablet Eff 25 Meq Tablet.eff) 50 meq ONCE ONCE PO 08/14/25 19:30 08/14/25 19:31 DC 08/14/25 19:33 Vital Signs Date Time Temp Pulse Resp B/P (MAP) Pulse Ox O2 Delivery O2 Flow Rate FiO2 08/14/25 18:54 98.8 106 16 137/86 95 Room Air* 0 21 08/14/25 18:14 98.1 114 18 129/87 97 Room Air 0 1945/patient is aware that she has alcohol level of 0.29. She also has a potassium of 2.8 and we will be replaced in the emergency room. She will be discharged home to her and he has taken her over to the rehab center now. Questions and Medical Decision Making MDM MDM: Differential diagnosis: Drug abuse/alcohol abuse/electrolyte imbalance/dehydration/UTI Rationale: Tests considered and ordered secondary to shared decision making include: Labs Previous outside records reviewed: Old ER visits. Risk of complication and/or morbidity or mortality of patient management: None Medications-Per medication reconciliation Need for hospitalization: Patient does not meet criteria for hospitalization. None Need for emergency major/minor surgery: No There are no social concerns with this patient. Patient drinks on a daily basis and has been binge drinking for the last several days. Suicidal ideation she has a who is supportive Prescription drug management none Prescriptions will include symptomatic care Patient's prior external medical records from other ER visits were reviewed by me as indicated. Prior testing and results from previous visits were reviewed. Prior tests were taken into account with medical decision making and resource utilization, independent historian/historians were used to obtain complete medical history. I independently interpreted the test that were performed, results were reviewed by me and considered findings on radiology if ordered. Medical management and examination interpretation discussions were had by me with other qualified healthcare professionals as indicated for the patient's care. DX & DISP Disposition: Discharge Departure Impression: Primary Impression: Alcohol abuse Additional Impressions: Acute alcohol intoxication, Hypokalemia, Dehydration Condition: Stable Additional Instructions: Follow-up with primary care provider in 1 to 2 days. Take medications as directed here in the emergency room. Okay to continue home medications unless otherwise discussed during your visit in the emergency room today. Return to your nearest emergency room if symptoms worsen or if there is no improvement. Call 911 if you need immediate assistance. Take Tylenol or Motrin [id number] as needed and if no contraindications are present. Increase oral hydration. A wound culture or urine culture was ordered here in the emergency room department please follow-up with primary care provider and advise them to get repeat ports from our facility. If you had any Derrek wrap/splints that were applied here, please do not remove them until you see your primary care or specialty. Referrals: SELF,REFERRAL (PCP) Time of Disposition: 19:47 I have reviewed the case, and I agree with, Diagnosis and Plan MARGARET DIAZ Aug 14, 2025 18:28
[2025-08-14 18:51] LABS: IMMATURE GRANULOCYTE ABSOLUTE 0.03 K/uL (0-1); NUCLEATED RED BLOOD CELLS 0.0 % (0.0-0.19); PLATELET COUNT (AUTO) 281 K/uL (130-400); RED BLOOD CELL COUNT(AUTO) 4.03 MIL/uL (4.00-5.50); RED CELL DISTRIBUTION WIDTH 15.3 % (11.0-15.5); WHITE BLOOD COUNT (AUTO) 7.1 K/uL (4.8-10.8)
[2025-08-14 18:54] VITALS: BP 137/86; PULSE 106; RESP 16; TEMP 98.8; O2SAT 95
[2025-08-14 18:59] LABS: APPEARANCE,URINE CLEAR (CLEAR); GLUCOSE, URINE (UA) NEGATIVE (NEGATIVE); LEUKOCYTE ESTERASE ,URINE NEGATIVE Leu/uL (NEGATIVE); NITRATE,URINE NEGATIVE (NEGATIVE); OCCULT BLOOD,URINE NEGATIVE (NEGATIVE)
[2025-08-14 19:00] LABS: ADD UA MICROSCOPIC NO
[2025-08-14 19:03] LABS: ALCOHOL, BLOOD 290 mg/dL (0-10); CREATININE 0.4 mg/dL (0.5-1.0); GLOMERULAR FILTR. RATE CALC 124 mL/min (>90); GLUCOSE,RANDOM 99 mg/dL (70-105); SODIUM SERUM 138 mmol/L (136-145); UREA NITROGEN, BLOOD 4 mg/dL (7-18)
[2025-08-14 19:06] LABS: AMPHET/METH SCREEN,URINE NEGATIVE (NEGATIVE); BARBITURATE SCREEN, URINE NEGATIVE (NEGATIVE); CANNABINOID SCREEN,URINE NEGATIVE (NEGATIVE); COCAINE SCREEN,URINE NEGATIVE (NEGATIVE)
== END 2025-08-14 19:59 | disposition home or self-care (01) ==
LOC: EDH 18:12
DX: S00.33XA Contusion of nose, initial encounter (principal); S80.212A Abrasion, left knee, initial encounter; F10.129 Alcohol abuse with intoxication, unspecified; E87.6 Hypokalemia; E86.0 Dehydration; E78.00 Pure hypercholesterolemia, unspecified; F41.9 Anxiety disorder, unspecified; F32.A Depression, unspecified; M19.90 Unspecified osteoarthritis, unspecified site; Z90.49 Acquired absence of other specified parts of digestive tract; Z98.890 Other specified postprocedural states; Z87.19 Personal history of other diseases of the digestive system; Z91.041 Radiographic dye allergy status; Z79.899 Other long term (current) drug therapy; Y90.8 Blood alcohol level of 240 mg/100 ml or more; W19.XXXA Unspecified fall, initial encounter; Y93.89 Activity, other specified; Y92.89 Other specified places as the place of occurrence of the external cause; Y99.8 Other external cause status
CPT/HCPCS: 99283; 80048; 80305; 85025; 81003; 36415; G0481